=== PATIENT | female | born 1975 | race Caucasian/White ===

== ENCOUNTER 2018-04-18 17:45 | Observation (INO) | payer BC, OTHER ==
[~2018-04-18 17:45] MED LIST: ISOVUE-370 76%-LOCM 1 ML ONE
[2018-04-18 18:50] LABS: #Eosinphils 0.2 thou/uL (0.0-0.7); #Lymphocytes 2.5 thou/uL (1.20-3.40); #Monocytes 0.3 thou/uL (0.11-0.59); #Neutrophils 5.3 thou/uL (1.40-6.50); %Basophils 0.2 % (0.0-1.0); %Eosinophils 2.7 % (0.0-10.0); %Monocytes 4.1 % (0.0-10.0); Hemoglobin 14.9 g/dL (12.0-16.0); Mean Corpuscular HGB CONC 34.6 g/dL (32.0-36.0); Mean Corpuscular Hemoglobin 31.3 pg (27.0-31.0); Mean Corpuscular Volume 90.3 fL (78.0-98.0); Mean Platelet Volume 7.2 fL (7.4-10.4); Platelet Count 227 thou/uL (130-400); RBC Distribution Width 11.4 % (11.5-14.5); Red Blood Cell (RBC) Count 4.75 mill/uL (4.20-5.40); White Blood Cell (WBC) Count 8.4 thou/uL (4.8-10.8)
[2018-04-18] MEDS ORDERED: Nitroglycerin 0.4 MG TAB (25 Tab Bottle) ONE ×2 (19:07→19:11)
[2018-04-18] MEDS ORDERED: Acetaminophen 500 MG TAB ONE (19:07)
[2018-04-18 19:09] LABS: ALT (SGPT) 42 U/L (8-55); AST (SGOT) 25 U/L (5-34); Albumin 4.5 g/dL (3.5-5.0); Alkaline Phosphatase 77 U/L (40-150); Anion Gap 14 mmol/L (10-20); BUN (Urea Nitrogen) 14 mg/dL (7.0-18.7); Bilirubin, Total 0.3 mg/dL (0.2-1.2); CK (CPK) 58 U/L (29-168); Calc. Creatinine Clearance 0 mL/min (70-130); Calcium 9.6 mg/dL (7.8-10.44); Carbon Dioxide 25 mmol/L (22-29); Chloride 107 mmol/L (98-107); Estimated GFR-MDRD 76; Globulin 2.5 g/dL (2.4-3.5); Glucose 107 mg/dL (70-105); Magnesium 2.4 mg/dL (1.6-2.6); Potassium 4.1 mmol/L (3.5-5.1); Sodium 142 mmol/L (136-145)
[2018-04-18 19:13] LABS: CKMB 1.2 ng/mL (0-6.6); Troponin I Less than 0.010 ng/mL (< 0.028)
--- NOTE | 2018-04-18 19:47 | CT ---
CT ANGIO OF CHEST WITH CONTRAST 04/18/18 Multiple axial tomograms obtained through chest with IV enhancement. Multiplanar reconstruction and 3 D postprocessing performed. INDICATIONS: Dyspnea. Chest pain. Pulmonary arteries show adequate opacification. No evidence of pulmonary embolus identified. The lungs are clear and well aerated. No infiltrate or effusion. Mediastinum unremarkable. Images thr ough upper abdomen unremarkable. IMPRESSION: 1. No evidence of pulmonary embolus. 2. No evidence of thoracic aortic dissection. 3. No acute lung process. POS: [facility] [place]
[2018-04-18 22:30] LABS: Troponin I Less than 0.010 ng/mL (< 0.028)
[2018-04-19 00:47] VITALS: BMI 36.8
[2018-04-19] MEDS ORDERED: Nitroglycerin 0.4 MG TAB (25 Tab Bottle) SL PRN (01:10)
[2018-04-19 01:21] LABS: Troponin I Less than 0.010 ng/mL (< 0.028)
[2018-04-19] MEDS ORDERED: tiZANidine HCl 4 MG TAB PO PRN (03:15)
[2018-04-19] MEDS ORDERED: Ondansetron HCl/PF 4 MG/2 ML Vial IVP PRN (03:18)
[2018-04-19 06:04] LABS: #Basophils 0.1 thou/uL (0.0-0.2); #Eosinphils 0.4 thou/uL (0.0-0.7); #Lymphocytes 3.1 thou/uL (1.20-3.40); #Monocytes 0.6 thou/uL (0.11-0.59); #Neutrophils 5.3 thou/uL (1.40-6.50); %Basophils 0.6 % (0.0-1.0); %Eosinophils 3.8 % (0.0-10.0); %Monocytes 6.1 % (0.0-10.0); %Neutrophils 56.4 % (42.0-75.0); Hemoglobin 13.8 g/dL (12.0-16.0); Mean Corpuscular HGB CONC 34.7 g/dL (32.0-36.0); Mean Corpuscular Hemoglobin 31.2 pg (27.0-31.0); Mean Corpuscular Volume 89.8 fL (78.0-98.0); Mean Platelet Volume 7.4 fL (7.4-10.4); Platelet Count 212 thou/uL (130-400); RBC Distribution Width 11.5 % (11.5-14.5); Red Blood Cell (RBC) Count 4.43 mill/uL (4.20-5.40); White Blood Cell (WBC) Count 9.5 thou/uL (4.8-10.8)
[2018-04-19 06:10] LABS: Anion Gap 12 mmol/L (10-20); BUN (Urea Nitrogen) 13 mg/dL (7.0-18.7); Calc. Creatinine Clearance 148 mL/min (70-130); Calcium 9.2 mg/dL (7.8-10.44); Carbon Dioxide 21 mmol/L (22-29); Chloride 109 mmol/L (98-107); Estimated GFR-MDRD 89; Glucose 111 mg/dL (70-105); Potassium 4.1 mmol/L (3.5-5.1); Sodium 138 mmol/L (136-145)
--- NOTE | 2018-04-19 08:15 | HP ---
CODE STATUS: FULL CODE. PRIMARY CARE PHYSICIAN: She goes to [facility]. TIME OF EVALUATION: 11:55 p.m. CHIEF COMPLAINT: Chest pain and palpitations. HISTORY OF PRESENT ILLNESS: This is a 43 years old female with past medical history of multiple dileep rbidities including arrhythmia in the past. The patient had been ____ to have a hyperlipidemia, fibr omyalgia, also family history that is strong she is reported that mother and father heart attack at a ge of 40s, came to the hospital after having gradually worsening shortness of breath, associated with chest pain that radiated to her jaw, no clear triggers, no alleviating factors, she reporting the sy mptoms have been present during the day, with no significant relief. She reported she is concerned b ecause her mother and father had MIs in the early age. REVIEW OF SYSTEMS: Constitutional: No fever, no chills, generalized weakness. Respiratory: No cou gh, no sputum production, no shortness of breath. Cardiovascular: The patient reports chest pain, p alpitation, shortness of breath with exertion. Gastrointestinal: No nausea, no vomiting, no diarrhe a. The patient has no abdominal pain. Central nervous system: No dizziness, headache, of feeling l ightheaded. Genitourinary: No burning with urination. Extremities: No leg swelling. All other sy stems were reviewed and negative except for the findings mentioned above. PAST MEDICAL HISTORY: History of hyperlipidemia, musculoskeletal disorders, fibromyalgia. PAST SURGICAL HISTORY: Left knee surgery, wisdom tooth obstruction, hernia repair, hysterectomy, and tonsillectomy. PSYCHIATRIC HISTORY: No previous psychiatric history. SOCIAL HISTORY: The patient drinks socially. No drugs. No smoking history. FAMILY HISTORY: Mother and father had [place] at the age of 40s and 50 respectively. KNOWN ALLERGIES: ERYTHROMYCIN, FENTANYL, NORCO, SULFA and ____. PHYSICAL EXAMINATION: VITAL SIGNS: Blood pressure 130/77 with heart rate 99, respiratory rate was 20, temperature 98, satu ration 100 on room air. GENERAL APPEARANCE: The patient is alert, oriented, not any acute distress. HEENT: Eyes: Normal conjunctiva. Moist oral mucosa. Anicteric. NECK: No JVD. RESPIRATORY: Bilateral air entry. No rales, no wheezing. Symmetric expansion. CARDIOVASCULAR: Normal rate, regular rhythm. No murmurs or gallops. No edema. ABDOMEN: Soft, normal bowel sounds. MUSCULOSKELETAL: Baseline range of motion and strength. No tenderness. SKIN: Warm and intact. No murmur, no rash. No redness. NEUROLOGIC: Baseline sensory. No evidence of any new focal weakness. Baseline speech. Cranial ner ves seem to be intact. PSYCHIATRIC: Good mood, no anxiety, oriented, optimal judgment. The EKG was discussed with performing physician from ER and the patient's EKG showed normal sinus rhy thm with a rate of 91, no evidence of any acute findings. The chest CTA was done. The patient has n o evidence of pulmonary embolism, no evidence of thoracic aortic dissection, no acute lung process. The labs were reviewed and that were basically normal. Troponin is negative x3. ASSESSMENT AND PLAN: The patient will be placed in the hospital with following medical problems: 1. Possible arrhythmia, was not seen on the chest x-ray and the EKG, we have consulted Cardiology, w e will follow recommendations, patient reported having family members with arrhythmia. She has been operated in the past, Holter. 2. The patient is obese, advised to lose weight. 3. Deep venous thrombosis prophylaxis. 4. Chest pain, rule out acute coronary syndrome. Troponins are negative, Cardiology has been consul paige. The patient has a recent stress test that was done, it was negative, so acute coronary syndrome seem to be less likely, most likely diagnosis is arrhythmia. We will do echo.
[2018-04-19] MEDS ORDERED: (Lifitegrast [Xiidra] 1 DROP) EA EYE SCH (09:00)
[2018-04-19] MEDS: Enoxaparin Sodium 40 MG/0.4 ML SYRINGE SC SCH (09:47)
[2018-04-19] MEDS: Acetaminophen 325 MG TAB PO PRN (12:11)
--- NOTE | 2018-04-19 13:38 | CON ---
DATE OF CONSULTATION: 04/19/2018 REASON FOR CONSULTATION: Tachycardia and chest pain. HISTORY OF PRESENT ILLNESS: Ms. Luh Branham is a very pleasant 43-year-old woman. The patient is admitted for the above listed problems. Ms. Branham states that she recently has been noticing her heart rate is fast. Sometimes it is in the 120s range and does really feel well with that, but on several occasions she has had to go to over 2 00 beats per minute. She judges the heart rate from her apple watch on her left wrist. She said rosa etimes if the heart rate stays over 200 for a prolonged time. It started making her chest hurt. She had several episodes of rapid heart rate yesterday, some of it well over 200 beats per minute and caity castlerupa came here to the emergency room. By the time she got here, the pain had gone away and heart rate went back to normal. She states that the heart rate seems to be in the 120 range, even 125 at times, even at rest. When i t goes to 200 beats, she thinks it happens relatively abruptly and goes away relatively abruptly, but she is not completely sure of that. She said she did note her heart rate up to 212. She also complains of shortness of breath with exertion. She has undergone a nuclear medicine stress testing at [facility] and was found to have no ischemia. She did have fatigue. PAST MEDICAL HISTORY: Hyperlipidemia, musculoskeletal disorder, fibromyalgia. PAST SURGICAL HISTORY: Knee surgery, wisdom tooth extraction, hernia repair, hysterectomy, tonsillec senia. REVIEW OF SYSTEMS: CONSTITUTIONAL: No significant weight gain or loss. VISION: No changes. HEARI NG: No changes. PULMONARY: No cough or wheezing. GASTROINTESTINAL: No nausea, vomiting, diarrhea . SKIN: No rashes. NEUROLOGIC: No unilateral weakness or numbness. PSYCHIATRIC: No unusual depr ession or anxiety. HEMATOLOGIC: No unusual bruising. GENITOURINARY: No burning with urination. P SYCHIATRIC: Negative. SOCIAL HISTORY: Occasional alcohol, no drugs. FAMILY HISTORY: Mother and father of myocardial infarction at the age 40 and 50. ALLERGIES: ERYTHROMYCIN and FENTANYL. PHYSICAL EXAMINATION: GENERAL: This is a very pleasant 43-year-old woman in no distress. VITAL SIGNS: Blood pressure 136/74, pulse is currently in the high 70s. EYES: Sclerae nonicteric. MOUTH: Mucous membranes moist. NECK: Supple, no lymphadenopathy. LUNGS: Clear, no wheezing, rales or rhonchi. CARDIAC: Normal S1, normal S2. There is no murmur, rub or gallop. ABDOMEN: Soft, nontender, no hepatosplenomegaly. EXTREMITIES: Warm and dry. No clubbing, cyanosis or edema. Good peripheral pulses. IMAGING DATA: EKG here shows sinus rhythm. There is a normal EKG on . Echocardiogram is done a nd will be interpreted. Stress test was normal by report from [facility]. ASSESSMENT: 1. Tachycardia. Some of her symptoms sound like inappropriate sinus tachycardia, but some also soun d like they could potentially be supraventricular tachycardia, especially with heart rate of over 200 . The patient states she had a monitor on when this occurred, monitor that needs to be sent in and scanned she still has that at her home. She will send that in for evaluation tomorrow. 2. Chest pain seems to be related to tachycardia. 3. History of hypercholesterolemia. 4. History of fibromyalgia. PLAN: 1. We will review echocardiogram. 2. Currently, her heart rate is not fast. Reluctant to start beta blockers now as her baseline hear t rate sometimes in the 70s and beta blockers may make her fatigue. We will start low dose diltiazem if she has evidence of supraventricular tachycardia, then potentially ablation could be considered.
[2018-04-19] MEDS ORDERED: Artificial Tears 18 DROP/0.9 ML EA EYE PRN (17:05)
--- NOTE | 2018-04-19 17:08 | PDOC.PN ---
- Subjective Encounter Start Date: 04/19/18 (f/u palpitations) Encounter Start Time: 17:06 Subjective: Pt reports feeling tired, like she ran a marathon and is on the verge -: of getting sick. She denies n/v. Generally feels warm. Notices a -: few bumps on left forearm that are new. - Objective Resuscitation Status: Resuscitation Status FULL:Full Resuscitation Vital Signs & Weight: Vital Signs (12 hours) Temp Pulse Resp BP Pulse Ox 04/19/18 15:59 98.3 F 88 24 H 127/62 96 04/19/18 12:08 74 04/19/18 11:01 98.7 F 74 12 140/73 99 04/19/18 08:00 98.0 F 70 12 04/19/18 07:22 98.0 F 70 12 122/71 97 Weight Weight 201 lb 6.4 oz I&O: 04/18/18 04/19/18 04/20/18 06:59 06:59 06:59 Intake Total 240 Balance 240 Result Diagrams: 04/19/18 05:24 04/19/18 05:24 EKG Reviewed by me: Yes (sinus 70's (60-70's)) Phys Exam - Physical Examination Constitutional: NAD Respiratory: no wheezing, no rales, no rhonchi, clear to auscultation bilateral Cardiovascular: RRR, no significant murmur Gastrointestinal: soft, non-tender, no distention, positive bowel sounds mild non-pitting edema of lower extremities and feet Neurological: non-focal, moves all 4 limbs Psychiatric: normal affect Deviation from normal: few skin colored papules scattered on left foreearm. n -: no erythema/induration Dx/Plan (1) Tachycardia Code(s): R00.0 - TACHYCARDIA, UNSPECIFIED Status: Acute (2) Paresthesia Code(s): R20.2 - PARESTHESIA OF SKIN Status: Chronic (3) Left hip pain Code(s): M25.552 - PAIN IN LEFT HIP Status: Chronic - Plan * Appreciate Cards consult- diltiazem started, echo pending and monitor on tele * * paresthesias - chronic, no currently on tx * * chronic hip pain - uses tizanidine prn at home * * dry eyes - artificial tears here * * dvt prophy - ambulatory, will d/c lovenox * gi prophy - not indicated * code status full * * reviewed plan of care with patient, no questions or further needs at end of eval.
[2018-04-20 07:54] VITALS: BP 109/63; TEMP 98.3
[2018-04-20] MEDS: Acetaminophen 325 MG TAB PO PRN (09:30)
[2018-04-20] MEDS: Enoxaparin Sodium 40 MG/0.4 ML SYRINGE SC SCH (09:31)
--- NOTE | 2018-04-20 10:50 | PRG ---
DATE OF SERVICE: 04/20/2018 Ms. Branham is doing well this morning. No tachycardia. She is tolerating the diltiazem. We had a talk today. She has chronic fatigue which I do not think is related to her heart, she shows me a graph of her heart rates, usually sees 98 to even 110 at times, it looks like she has some degr ee of inappropriate sinus tachycardia, but intermittently she has extremely rapid rates 190-200 which is probably SVT. I think she should be treated with diltiazem, also regular exercise and walking, a good diet is the appropriate therapy at this point. If she has recurrent SVT ablation could be done . PHYSICAL EXAMINATION: VITAL SIGNS: Her blood pressure is 110/63, pulse 70. LUNGS: Clear. CARDIAC: Normal S1, S2. ABDOMEN: Soft, nontender. EXTREMITIES: There is no edema. ASSESSMENT: Tachycardia, probably has some degree of inappropriate sinus tachycardia as well I suspe ct she may have supraventricular tachycardia as well. PLAN: 1. She is on Cardizem-CD 180 mg a day. 2. Other therapy as outlined above. 3. She will see us in the office in 3-4 weeks. 4. If she has recurrent symptoms, we could give her an event monitor. If she has SVT on the diltiaz em consideration for supraventricular tachycardia ablation. 5. She had a negative stress test at [facility].
--- NOTE | 2018-04-20 12:20 | DIS ---
DATE OF ADMISSION: 04/18/2018 DATE OF DISCHARGE: 04/20/2018 PRIMARY CARE PHYSICIAN: Dr. Juan Carlos Catalan at [facility] PRIMARY AVIONICS SAFETY INSPECTOR: Dr. Aimee Beltran. DISCHARGE DIAGNOSES: 1. Palpitations, unspecified tachycardia. 2. Fatigue. 3. Noncardiac chest pain. CONSULTATION: Dr. Aimee Beltran with Cardiology. PROCEDURES: Echocardiogram on 04/19/2018 showed an EF of 60%-65%, normal valves, normal wall motion and no abnormalities. HISTORY AND PHYSICAL: Ms. Branham is a 43-year-old female with history of episodes of palpitations. She has been undergoing cardiac monitoring, though the most recent results were not available. She s ubsequently developed palpitations that did not go away, so presented to the emergency department for evaluation. She has been fatigued for about a month. Workup in the ER did not show any abnormalities, Cardiology consulted and started her on a low dose C ardizem at 120 mg daily. She was watched overnight. Troponins were negative. She had a stress test that was negative a week ago at [facility]. An echocardiogram was pending. She was watched again overnight from 04/19/2018 to 04/20/2018. Her tele metry remained negative. Heart rate stayed in the 80s-90s. She has tolerated Cardizem well and was slightly increased from 120-180 mg daily, and was cleared for discharge with Dr. Beltran with outpatie nt followup. PHYSICAL EXAMINATION: The patient was seen and examined on the day of discharge. Discharge plan and disposition was discussed with the patient [id number] at bedside. DISCHARGE MEDICATIONS: New medications: 1. Diltiazem HCL 180 mg p.o. daily. Prescription sent for 30 days, +2 refills. Medications to continue: 1. Tizanidine 2 mg p.o. at bedtime. 2. Xiidra 1 drop each eye b.i.d. DISCHARGE CONDITION: Stable. DISPOSITION: Discharged home via private vehicle. DISCHARGE ACTIVITY: Per cardiopulmonary limits. FOLLOWUP APPOINTMENTS: 1. Primary care physician within a week. 2. Dr. Beltran per his clinic.
== END 2018-04-20 13:17 | disposition home or self-care (01) ==
LOC: ERS 17:45 → ERHOLD 21:30 → 2SW 04-19 00:22
PROVIDERS: ADMIT Hospitalist; ATTEND Hospitalist
DX: R07.89 Other chest pain (principal); R00.2 Palpitations; R00.0 Tachycardia, unspecified; E78.5 Hyperlipidemia, unspecified; M79.7 Fibromyalgia; G89.29 Other chronic pain; M25.552 Pain in left hip; R20.2 Paresthesia of skin; E66.9 Obesity, unspecified; Z68.36 Body mass index [BMI] 36.0-36.9, adult; Z88.8 Allergy status to other drugs, medicaments and biological substances; Z88.5 Allergy status to narcotic agent; Z79.899 Other long term (current) drug therapy
CPT/HCPCS: 36415; 71275; 80048; 80053; 82550; 82553; 83735; 83880; 84484; 85025; 90471; 90732; 93005; 93306; 96372; G0009; G0378; J1650

== ENCOUNTER 2018-09-23 08:51 | Outpatient (CLI) | payer BC | END 2018-09-23 08:52 | disposition home or self-care (01) | LOC: CTENTCT 08:51 | PROVIDERS: ATTEND Specialist | DX: J32.8 Other chronic sinusitis (principal) | CPT/HCPCS: 70486 ==

== ENCOUNTER 2018-11-09 10:35 | Day surgery (SDC) | payer BC ==
[2018-11-06 12:42] VITALS: BMI 41.5
[2018-11-09] MEDS ORDERED: Oxymetazoline HCl 0.05% ( 15 ML ) ONE ×2 (11:30→11:54)
[2018-11-09] MEDS ORDERED: Lidocaine 1% w/Epinephrine 1:100K 20 ML VIAL ONE (11:30)
[2018-11-09] MEDS ORDERED: Bacitracin Zinc Ointment 30 gm TUBE ONE (11:30)
[2018-11-09] MEDS ORDERED: Midazolam HCl 2 mg/2 ml Vial ONE (12:01)
[2018-11-09] MEDS ORDERED: HYDROmorphone 2 MG/ML VIAL ONE (12:03)
[2018-11-09] MEDS ORDERED: Lidocaine 1% PF 5 ML VIAL ONE (16:51)
[2018-11-09] MEDS ORDERED: PROPOFOL 200 MG/20 ML VIAL ONE (16:51)
[2018-11-09] MEDS ORDERED: Ondansetron PF 4 MG/2 ML Vial ONE (16:51)
[2018-11-09] MEDS ORDERED: Rocuronium Bromide 10 MG/ML (10ML VIAL) ONE (16:51)
[2018-11-09] MEDS ORDERED: Dexamethasone 20 MG/5 ML VIAL ONE (16:51)
[2018-11-09] MEDS ORDERED: Glycopyrrolate 0.2 MG/ML 5 ML SYRINGE ONE (16:51)
--- NOTE | 2018-11-10 10:19 | OP ---
DATE OF PROCEDURE: 11/09/2018 PREOPERATIVE DIAGNOSES: Chronic sinusitis, hypertrophied inferior turbinates, chronic facial pain, and recurrent sinusitis. POSTOPERATIVE DIAGNOSES: Chronic sinusitis, hypertrophied inferior turbinates, chronic facial pain, and recurrent sinusitis. PROCEDURES PERFORMED: 1. Bilateral nasal endoscopy with maxillary antrostomy. 2. Bilateral nasal endoscopy with total ethmoidectomy. 3. Bilateral nasal endoscopy with frontal sinusotomy. 4. Bilateral nasal endoscopy with sphenoidotomy. 5. Bilateral nasal endoscopy with submucosal resection of inferior turbinates. DESCRIPTION OF PROCEDURE: After consent was obtained, the patient was identified, brought to the operating room, and placed on the operating room table in the supine position. Consent was obtained, notifying the patient of the possibility of additional infections, bleeding, brain injury, and eye/orbital injury. The patient was placed on the operating room table, and general endotracheal anesthesia and intravenous access was obtained. The patient was then positioned, prepped and draped for endoscopic sinus surgery. Nasal preparation included trimming nasal vestibular hairs and spraying in topical Afrin. We then placed Afrin topical solution on nasal pledgets and strategically located them intranasally. The perinasal mucosa was injected with 1% lidocaine with 1:100,000 epinephrine in the submucoperichondrial plane of the septum, lateral nasal wall, and anterior to the uncinate. The patient was then prepped and draped in a sterile fashion and positioned for endoscopic sinus surgery. BILATERAL NASAL ENDOSCOPY WITH MAXILLARY ANTROSTOMY: The uncinate was then identified and the extent of the uncinate was appreciated by out-fracturing the uncinate with the ball-tip probe. We then used the sickle blade to disarticulate the uncinate from the lateral nasal wall. This was then removed with straight biting and upbiting punches with the remaining shrouds of mucosa and bony septum removed with the micro-debrider. The natural os of the maxillary sinus was then identified and enlarged with the maxillary punches and back biting forceps. BILATERAL NASAL ENDOSCOPY WITH TOTAL ETHMOIDECTOMY: The uncinate was then identified and the extent of the uncinate was appreciated by out-fracturing the uncinate with the ball-tip probe. We then used the sickle blade to disarticulate the uncinate from the lateral nasal wall. This was then removed with straight biting and upbiting punches with the remaining shrouds of mucosa and bony septum removed with the micro-debrider. The natural os of the maxillary sinus was then identified and enlarged with the maxillary punches and back biting forceps. BILATERAL NASAL ENDOSCOPY WITH FRONTAL SINUSOTOMY: Following the ethmoidectomy, we then turned our attention to the frontal nasal recess. The agger nasi cells were addressed and the frontal recess was exposed. The natural opening to the frontal sinus was identified. At this point, any obstructing shrouds of mucosa and bony fragments were removed with a curved microdebrider. The wound was then examined and found to be free of any obstructing debris. We then turned our attention to the contralateral side and performed a similar procedure again under endoscopic visualization using a 45-degree scope. We were able to visualize the frontal recess. Obstructing shrouds of mucosa and bone were removed with a microdebrider. The natural os of frontal sinus was identified and enlarged and irrigated. At this point, the frontal sinusotomy was completed and we turned to the next area of concern. BILATERAL NASAL ENDOSCOPY WITH SPHENOIDOTOMY: The anterior face of the sphenoid was identified and entered in its extreme anteroinferior aspect. A sphenoid punch was then used to enlarge the sphenoidotomy and no injury to the optic nerve or internal carotid artery occurred. BILATERAL NASAL ENDOSCOPY WITH SUBMUCOSAL RESECTION OF INFERIOR TURBINATES: With the 0-degree endoscope, the patient underwent systematic nasal endoscopy. There were no suspicious internasal masses or lesions identified. We then focused our attention to the osteomeatal complex region under the middle turbinate. The inferior turbinates were visualized with a 0 degree endoscope and outfractured with a Fernanda elevator. The inferior medial aspect was cauterized with the electrocautery. Hemostasis was obtained . After adequate airway was established, we turned our attention to the contralateral side and used a similar procedure. Again, a Fernanda elevator was used to outfracture inferior turbinates under endoscopic visualization. With a suction cautery, the free inferior medial aspect was cauterized under direct visualization along the length of the inferior turbinate. At this point, we then turned our attention to the contralateral side and proceeded with endoscopic sinus surgery. At the completion of the case, Rice keel splints were placed in the ethmoid cavities after the ethmoidectomy. There were no complications. The patient tolerated the procedure well and was discharged to the recovery room in stable condition prior to return to the preoperative day stay with ultimate discharge home. Prescriptions for pain medication and antibiotics were provided. The patient received intramuscular Depo-Medrol during the case. Job ID: [id number]
== END 2018-11-09 15:05 | disposition home or self-care (01) ==
LOC: SDC 10:35
PROVIDERS: ATTEND Specialist
PROC: 09TU8ZZ Resection of Right Ethmoid Sinus, Via Natural or Artificial Opening Endoscopic (ICD-10-PCS; principal; 2018-11-09)
PROC: 099X8ZZ Drainage of Left Sphenoid Sinus, Via Natural or Artificial Opening Endoscopic (ICD-10-PCS; principal; 2018-11-09)
PROC: 099Q8ZZ Drainage of Right Maxillary Sinus, Via Natural or Artificial Opening Endoscopic (ICD-10-PCS; principal; 2018-11-09)
PROC: 099R8ZZ Drainage of Left Maxillary Sinus, Via Natural or Artificial Opening Endoscopic (ICD-10-PCS; principal; 2018-11-09)
PROC: 099S8ZZ Drainage of Right Frontal Sinus, Via Natural or Artificial Opening Endoscopic (ICD-10-PCS; principal; 2018-11-09)
PROC: 099W8ZZ Drainage of Right Sphenoid Sinus, Via Natural or Artificial Opening Endoscopic (ICD-10-PCS; principal; 2018-11-09)
PROC: 09TV8ZZ Resection of Left Ethmoid Sinus, Via Natural or Artificial Opening Endoscopic (ICD-10-PCS; principal; 2018-11-09)
PROC: 09SL8ZZ Reposition Nasal Turbinate, Via Natural or Artificial Opening Endoscopic (ICD-10-PCS; principal; 2018-11-09)
PROC: 099T8ZZ Drainage of Left Frontal Sinus, Via Natural or Artificial Opening Endoscopic (ICD-10-PCS; principal; 2018-11-09)
DX: J32.9 Chronic sinusitis, unspecified (principal); J34.3 Hypertrophy of nasal turbinates; J34.89 Other specified disorders of nose and nasal sinuses; E78.00 Pure hypercholesterolemia, unspecified; I10 Essential (primary) hypertension; Z79.899 Other long term (current) drug therapy; Z88.2 Allergy status to sulfonamides; Z88.4 Allergy status to anesthetic agent; Z88.5 Allergy status to narcotic agent; Z88.8 Allergy status to other drugs, medicaments and biological substances
CPT/HCPCS: 36415; 85014; J1100; J1170; J2001; J2250; J2405; J2704; J3490

== ENCOUNTER 2018-11-23 10:06 | Emergency (ER) | payer BC ==
[2018-11-23] MEDS ORDERED: Aspirin Chewable 81 MG TAB ONE (10:22)
[2018-11-23 10:49] LABS: #Basophils 0.1 thou/uL (0.0-0.2); #Eosinphils 0.2 thou/uL (0.0-0.7); #Lymphocytes 1.8 thou/uL (1.20-3.40); #Monocytes 0.3 thou/uL (0.11-0.59); #Neutrophils 5.9 thou/uL (1.40-6.50); %Eosinophils 2.5 % (0.0-10.0); %Lymphocytes 21.8 % (21.0-51.0); %Monocytes 4.1 % (0.0-10.0); %Neutrophils 70.6 % (42.0-75.0); Hemoglobin 14.7 g/dL (12.0-16.0); Mean Corpuscular HGB CONC 33.3 g/dL (32.0-36.0); Mean Corpuscular Hemoglobin 29.9 pg (27.0-31.0); Mean Corpuscular Volume 89.9 fL (78.0-98.0); Mean Platelet Volume 7.1 fL (7.4-10.4); Platelet Count 331 thou/uL (130-400); RBC Distribution Width 11.1 % (11.5-14.5); Red Blood Cell (RBC) Count 4.93 mill/uL (4.20-5.40); White Blood Cell (WBC) Count 8.4 thou/uL (4.8-10.8)
[2018-11-23 11:00] LABS: ALT (SGPT) 34 U/L (8-55); AST (SGOT) 23 U/L (5-34); Albumin 4.2 g/dL (3.5-5.0); Alkaline Phosphatase 80 U/L (40-150); Anion Gap 15 mmol/L (10-20); BUN (Urea Nitrogen) 10 mg/dL (7.0-18.7); Bilirubin, Total 0.4 mg/dL (0.2-1.2); Calc. Creatinine Clearance 0 mL/min (70-130); Carbon Dioxide 22 mmol/L (22-29); Chloride 106 mmol/L (98-107); Estimated GFR-MDRD 75; Globulin 2.8 g/dL (2.4-3.5); Glucose 107 mg/dL (70-105); Lipase 14 U/L (8-78); Potassium 3.9 mmol/L (3.5-5.1); Sodium 139 mmol/L (136-145)
--- NOTE | 2018-11-23 11:17 | RAD ---
PORTABLE AP CHEST: Date: 11/23/18 HISTORY: Chest pain. Patient feels heartburn. COMPARISON: None available. FINDINGS: Cardiac silhouette and pulmonary vasculature are within normal limits. The lungs are clear. Osseous s tructures are intact. IMPRESSION: No acute cardiopulmonary process. POS: [facility]
--- NOTE | 2018-11-23 12:24 | CT ---
CT ANGIOGRAM CHEST WITH CONTRAST: HISTORY: Elevated D-dimer. Chest pain. COMPARISON: CT angiogram chest from 04/18/2018. TECHNIQUE: CT angiogram chest was performed after the intravenous administration of contrast, and 3D rendering w as provided. FINDINGS: No proximal or segmental pulmonary arterial filling defect. No mediastinal adenopathy. No pericardi al effusion. Aortic contour is normal. Diffuse hepatic steatosis. Prior cholecystectomy. The lungs are clear. No pneumothorax. No effusion. The thoracic spine is without compression deformity. The sternum and manubrium are intact. The ramon ac trunk and superior mesenteric arteries are patent. IMPRESSION: 1. No proximal or segmental pulmonary arterial filling defect. 2. No acute inflammatory process within the chest. 3. Diffuse hepatic steatosis. POS: [facility]
[2018-11-23] MEDS ORDERED: Famotidine/PF 20 mg/2ml Vial ONE (12:39)
[2018-11-23] MEDS ORDERED: Ondansetron PF 4 MG/2 ML Vial ONE (12:40)
[2018-11-23 13:57] LABS: Troponin I Less than 0.010 ng/mL (< 0.028)
== END 2018-11-23 14:15 | disposition home or self-care (01) ==
LOC: SCSER 10:06
DX: R07.9 Chest pain, unspecified (principal); E78.5 Hyperlipidemia, unspecified; I47.1 Supraventricular tachycardia; Z79.899 Other long term (current) drug therapy
CPT/HCPCS: 36415; 71045; 71275; 80053; 83690; 84484; 85025; 85379; 93005; 96372; 96374; 96375; J0500; J2405; S0028

== ENCOUNTER 2019-02-09 20:30 | Outpatient (CLI) | payer BC | END 2019-02-09 20:31 | disposition home or self-care (01) | LOC: SLEEPLAB 20:30 | PROVIDERS: ATTEND Internal Medicine Pulmonary Disease | DX: G47.33 Obstructive sleep apnea (adult) (pediatric) (principal); R06.83 Snoring; G47.10 Hypersomnia, unspecified; G47.00 Insomnia, unspecified; K21.9 Gastro-esophageal reflux disease without esophagitis; R05 Cough | CPT/HCPCS: 95811 ==

== ENCOUNTER 2020-07-19 10:36 | Outpatient (CLI) | payer BC ==
--- NOTE | 2020-07-19 11:32 | CT ---
EXAM: CT ABDOMEN AND PELVIS HISTORY: Patient started having pain 6 weeks after gastric sleeve. Left upper quadrant pain, radiating to the left flank, x1 year. COMPARISON: None. CORRELATION: CT angiogram of the chest 11/23/2018. Procedure: Multiple contiguous axial images were obtained and a CT of the abdomen and pelvis with IV contrast. C oronal reformats were performed. FINDINGS: Lower Chest: Within normal limits. Vessels: Normal caliber aorta. No periaortic fat stranding. Heart: Normal heart size. Abdomen: Portal vein:Patent. Gallbladder: Surgically absent. Liver: within normal limits. Pancreas: within normal limits. Spleen: within normal limits. Adrenals: within normal limits. Kidneys: Symmetric enhancement. No obstructive uropathy. Peritoneum: No ascites or free air, no fluid collection. Bowel: There is evidence of previous bariatric surgical change. There is a small hiatal hernia with p araesophageal fat herniation. Multiple normal caliber small bowel loops. Normal ileocecal junction. Appendix is normal in caliber. Scattered fecal material and contrast in a nondistended, nondilated co loan. Mesentery and Retroperitoneum: There is an enlarged paraesophageal lymph node measuring 1.3 x 0.7 cm. There is abnormal soft tissue density in the inferior left and right hilum as well as a posterior right mediastinum, incompletely evaluated. Abdominal Wall: There appears to be mild edema involving the anterior left abdominal subcutaneous fat and musculature. Discrete fluid collection is not appreciated. Pelvis: Reproductive Organs: Uterus is surgically absent. There is a hypodensity in the left hemipelvis measu ring 6.0 x 4.1 cm with attenuation coefficient of 24 Hounsfield units. Complex left ovarian cyst is favored. Right ovary appears to be grossly unremarkable. Pelvis: No mass, lymphadenopathy, free air or free fluid. Bladder: Within normal limits. Bones: Within normal limits. IMPRESSION: 1. Left ovarian cyst. 2. Nonspecific paraesophageal lymph node. There is evidence of previous bariatric surgical change wit h a hiatal hernia and paraesophageal fat herniation. No evidence of a small bowel obstruction. 3. Abnormal signal hypodensity in the posterior mediastinum and inferior left and right hilum. The po ssibility of interval lymphadenopathy is raised. Postcontrast chest CT is recommended. 4. Edematous change involving the left abdominal wall which may be iatrogenic. No evidence of associa paige abscess. Findings conveyed to Dr. Sinclair via [facility] 07/19/2020 11:29 AM Code CR Transcribed Date/Time: 07/19/2020 11:42 AM
[2020-07-19] MEDS ORDERED: Iopamidol-370 76% 500 ML 1 ML ONE (13:44)
== END 2020-07-19 10:37 | disposition home or self-care (01) ==
LOC: BICCT 10:36
PROVIDERS: ATTEND Surgery
DX: K21.9 Gastro-esophageal reflux disease without esophagitis (principal); R10.12 Left upper quadrant pain; N83.202 Unspecified ovarian cyst, left side; R91.8 Other nonspecific abnormal finding of lung field; K44.9 Diaphragmatic hernia without obstruction or gangrene; Z98.84 Bariatric surgery status
CPT/HCPCS: 36415; 74177; 80048; 80061; 80076; 82306; 82607; 82746; 83036; 83540; 83550; 83735; 84425; 84590; 85025; Q9967

== ENCOUNTER 2021-11-01 14:07 | Outpatient (CLI) | payer BC ==
[2021-11-03 00:06] LABS: SARS-CoV-2 PCR by NAA Not Detected (NotDetected)
== END 2021-11-01 14:08 | disposition home or self-care (01) ==
LOC: LABBT 14:07
PROVIDERS: ATTEND Surgery
DX: Z01.812 Encounter for preprocedural laboratory examination (principal); Z20.822 Contact with and (suspected) exposure to COVID-19
CPT/HCPCS: U0003; U0005

== ENCOUNTER 2021-11-06 07:37 | Outpatient (CLI) | payer BC | END 2021-11-06 07:38 | disposition home or self-care (01) | LOC: RAD 07:37 | PROVIDERS: ATTEND Surgery | DX: K21.9 Gastro-esophageal reflux disease without esophagitis (principal); Z98.890 Other specified postprocedural states | CPT/HCPCS: 74246 ==

== ENCOUNTER 2021-11-23 14:44 | Outpatient (CLI) | payer BC ==
[2021-11-24 00:17] LABS: SARS-CoV-2 PCR by NAA Not Detected (NotDetected)
== END 2021-11-23 14:45 | disposition home or self-care (01) ==
LOC: LABBT 14:44
PROVIDERS: ATTEND Surgery
DX: Z20.822 Contact with and (suspected) exposure to COVID-19 (principal)
CPT/HCPCS: U0003; U0005